=== PATIENT | female | born 1960 | race Caucasian/White ===

== ENCOUNTER → 2020-11-15 | Outpatient (CLI) | payer OTHER, MEDICAID | END | disposition home or self-care (01) | LOC: RAD 12:49 | PROVIDERS: ATTEND Nurse Practitioner Family | DX: J02.9 Acute pharyngitis, unspecified (principal); R06.2 Wheezing; R07.89 Other chest pain ==

== ENCOUNTER → 2021-02-01 | Outpatient (CLI) | payer OTHER, MEDICAID | END | disposition home or self-care (01) | LOC: RAD 13:47 | PROVIDERS: ATTEND Nurse Practitioner Family | DX: M19.071 Primary osteoarthritis, right ankle and foot (principal) ==

== ENCOUNTER → 2021-04-27 | Outpatient (CLI) | payer OTHER, MEDICAID ==
[~2021-04-27] MED LIST: ARNUITY ELLIPT50 MCG INH; CITALOPRAM40 MG PO; CLONAZEPAM1 MG PO; DECADRON6 M1 PO; MIRTAZAPINE15 M2 PO; NICODERM CQ1 EAC2 T; SINGULAIR10 M1 PO
== END | disposition home or self-care (01) ==
LOC: RAD 11:42
PROVIDERS: ATTEND Nurse Practitioner Family
DX: U07.1 COVID-19 (principal); J12.82 Pneumonia due to coronavirus disease 2019

== ENCOUNTER → 2021-06-09 | Outpatient (CLI) | payer OTHER, MEDICAID | END | disposition home or self-care (01) | LOC: RAD 14:14 | PROVIDERS: ATTEND Nurse Practitioner Family | DX: R93.89 Abnormal findings on diagnostic imaging of other specified body structures (principal); Z72.0 Tobacco use; J44.9 Chronic obstructive pulmonary disease, unspecified ==

== ENCOUNTER → 2021-06-28 | Outpatient (CLI) | payer OTHER, MEDICAID | END | disposition home or self-care (01) | LOC: RAD 14:13 | PROVIDERS: ATTEND Nurse Practitioner Family | DX: M19.041 Primary osteoarthritis, right hand (principal); M65.4 Radial styloid tenosynovitis [de Quervain]; Z86.16 Personal history of COVID-19 ==

== ENCOUNTER 2021-07-19 10:40 | Emergency (ER) | payer OTHER, MEDICAID ==
[~2021-07-19] VITALS: Ht 165.1 cm; Wt 113.4 kg
[2021-07-19 11:51] LABS: BASO % 0.4 % (0.0-1.0); HEMATOCRIT 47.5 % (37.0-47.0); LYMPH # 0.5 10*3/uL (1.3-4.4); MEAN CELL VOLUME 84.8 fl (81.0-99.0); MEAN CORPUSCULAR HGB 28.2 pg (27.0-31.0); MEAN CORPUSCULAR HGB CONC 33.3 g/dl (33.0-37.0); MEAN PLATELET VOLUME 9.8 fl (9.6-12.3); MONO # 0.4 10*3/uL (0.1-1.0); MONO % 4.2 % (3.0-9.0); NEUT # 7.4 10*3/uL (2.3-7.9); NEUT % 88.4 % (47.0-73.0); PLATELET COUNT AUTOMATED 225 10*3/uL (130-400); RED CELL DISTRI WIDTH 13.2 % (0-14.5); WHITE BLOOD COUNT 8.3 10*3/uL (4.8-10.8)
[2021-07-19 12:02] LABS: ACT PARTIAL THROMBO TIME 37.6 SECONDS (20.0-32.1)
[2021-07-19 12:08] LABS: CREATININE 1.12 mg/dL (0.55-1.02); POTASSIUM 3.4 mmol/L (3.5-5.1); TOTAL PROTEIN 7.8 gm/dL (6.4-8.2)
[2021-07-19] MEDS ORDERED: ZITHROMAX250 MG PO (15:22)
[2021-07-19] MEDS ORDERED: PREDNISONE50 MG PO (15:22)
== END 2021-07-19 15:26 | disposition home or self-care (01) ==
LOC: ED 10:40
PROVIDERS: Emergency Medicine
DX: J20.9 Acute bronchitis, unspecified (principal); Z20.822 Contact with and (suspected) exposure to COVID-19; Z79.899 Other long term (current) drug therapy; Z90.49 Acquired absence of other specified parts of digestive tract; F17.200 Nicotine dependence, unspecified, uncomplicated

== ENCOUNTER → 2021-08-16 | Day surgery (SDC) | payer OTHER, MEDICAID ==
[2021-08-12 12:17] LABS: CREATININE 1.15 mg/dL (0.55-1.02); POTASSIUM 3.7 mmol/L (3.5-5.1)
[~2021-08-16] VITALS: Ht 165.1 cm; Wt 102.1 kg
[~2021-08-16] MED LIST changes: +KLONOPIN1 M1 PO; +MELOXICAM15 MG PO; +PREDNISONE50 MG PO; +PROVENTIL HFA6.7 GM INH; +ZITHROMAX250 MG PO
== END | disposition home or self-care (01) ==
LOC: SDC 08-12 13:15
PROVIDERS: ATTEND Orthopaedic Surgery
DX: M65.312 Trigger thumb, left thumb (principal); J44.9 Chronic obstructive pulmonary disease, unspecified; F41.9 Anxiety disorder, unspecified; F32.9 Major depressive disorder, single episode, unspecified; F43.10 Post-traumatic stress disorder, unspecified; F17.210 Nicotine dependence, cigarettes, uncomplicated; Z53.8 Procedure and treatment not carried out for other reasons

== ENCOUNTER 2022-04-16 12:14 | Emergency (ER) | payer OTHER, MEDICAID ==
[~2022-04-16 12:14] MED LIST changes: +CITALOPRAM20 MG PO; +FLUTICASONE P15.8 ML NAS; +KLONOPIN0.5 MG PO; +VITAMIN B121000 MC1 PO
== END 2022-04-16 14:33 | disposition home or self-care (01) ==
LOC: ED 12:14
DX: M77.31 Calcaneal spur, right foot (principal); J45.909 Unspecified asthma, uncomplicated; F32.A Depression, unspecified; F41.9 Anxiety disorder, unspecified; Z90.49 Acquired absence of other specified parts of digestive tract; Z98.890 Other specified postprocedural states; F17.200 Nicotine dependence, unspecified, uncomplicated

== ENCOUNTER 2023-07-08 10:26 | Emergency (ER) | payer OTHER, MEDICAID ==
[~2023-07-08] VITALS: Ht 165.1 cm; Wt 98.9 kg
[2023-07-08] MEDS ORDERED: ACETAMINOPHEN 325 MG TAB PO ONE (13:15)
== END 2023-07-08 13:25 | disposition home or self-care (01) ==
LOC: ED 10:26
DX: M25.561 Pain in right knee (principal); J45.909 Unspecified asthma, uncomplicated; J44.9 Chronic obstructive pulmonary disease, unspecified; F32.A Depression, unspecified; F41.9 Anxiety disorder, unspecified; F17.200 Nicotine dependence, unspecified, uncomplicated; Z90.49 Acquired absence of other specified parts of digestive tract; Z98.890 Other specified postprocedural states

== ENCOUNTER → 2024-06-11 | Outpatient (CLI) | payer OTHER ==
[2024-06-11 07:55] LABS: BASO # 0.1 10*3/uL (0.0-0.1); BASO % 0.5 % (0.0-1.0); EOS # 0.1 10*3/uL (0.0-0.4); EOS % 1.3 % (1.0-4.0); HEMATOCRIT 45.7 % (37.0-47.0); MEAN CELL VOLUME 87.5 fl (81.0-99.0); MEAN CORPUSCULAR HGB 29.1 pg (27.0-31.0); MEAN CORPUSCULAR HGB CONC 33.3 g/dl (33.0-37.0); MEAN PLATELET VOLUME 9.7 fl (9.6-12.3); MONO # 0.6 10*3/uL (0.1-1.0); MONO % 6.6 % (3.0-9.0); NEUT # 5.9 10*3/uL (2.3-7.9); NEUT % 65.1 % (47.0-73.0); PLATELET COUNT AUTOMATED 331 10*3/uL (130-400); RED BLOOD COUNT 5.22 10*6/uL (4.10-5.10); RED CELL DISTRI WIDTH 13.1 % (0-14.5); WHITE BLOOD COUNT 9.1 10*3/uL (4.8-10.8)
[2024-06-11 09:23] LABS: ALKALINE PHOSPHATASE 97 U/L (46-116); BUN 11 mg/dl (9-23); CHLORIDE 107 mmol/L (98-107); POTASSIUM 3.4 mmol/L (3.4-5.1); SGPT/ALT 20 U/L (5-49); T3 UPTAKE 27.7 % (22.4-36.7); THYROXINE (T4) TOTAL 9.3 ug/dl (4.5-10.9); TOTAL PROTEIN 7.7 gm/dL (6.0-8.0)
== END | disposition home or self-care (01) ==
LOC: LAB 07:35
PROVIDERS: ATTEND Social Worker Clinical
DX: Z51.81 Encounter for therapeutic drug level monitoring (principal); Z79.899 Other long term (current) drug therapy

== ENCOUNTER → 2024-07-15 | Outpatient (CLI) | payer OTHER ==
[2024-07-15 12:03] LABS: BASO # 0.1 10*3/uL (0.0-0.1); BASO % 0.6 % (0.0-1.0); EOS # 0.1 10*3/uL (0.0-0.4); EOS % 0.5 % (1.0-4.0); HEMATOCRIT 46.5 % (37.0-47.0); MEAN CELL VOLUME 87.9 fl (81.0-99.0); MEAN CORPUSCULAR HGB 29.1 pg (27.0-31.0); MEAN CORPUSCULAR HGB CONC 33.1 g/dl (33.0-37.0); MONO # 0.8 10*3/uL (0.1-1.0); MONO % 5.8 % (3.0-9.0); NEUT # 9.3 10*3/uL (2.3-7.9); NEUT % 70.2 % (47.0-73.0); PLATELET COUNT AUTOMATED 353 10*3/uL (130-400); RED BLOOD COUNT 5.29 10*6/uL (4.10-5.10); RED CELL DISTRI WIDTH 13.2 % (0-14.5); WHITE BLOOD COUNT 13.3 10*3/uL (4.8-10.8)
[2024-07-15 12:05] LABS: BILIRUBIN Negative (Negative); BLOOD Trace-Lysed (Negative); CLARITY Clear (Clear); COLOR Yellow (Yellow); GLUCOSE Negative (Negative); KETONE Negative (Negative); LEUKO ESTERASE Negative (Negative); NITRITE Negative (Negative)
[2024-07-15 12:30] LABS: ALKALINE PHOSPHATASE 99 U/L (46-116); BUN 12 mg/dl (9-23); CHLORIDE 105 mmol/L (98-107); CPK 84 U/L (34-171); SGPT/ALT 21 U/L (5-49); TOTAL PROTEIN 7.5 gm/dL (6.0-8.0)
[2024-07-15 12:52] LABS: BACTERIA 1+; MUCOUS 2+
== END | disposition home or self-care (01) ==
LOC: LAB 11:44
PROVIDERS: ATTEND Nurse Practitioner Family
DX: J44.9 Chronic obstructive pulmonary disease, unspecified (principal); M79.10 Myalgia, unspecified site; R05.1 Acute cough; G25.81 Restless legs syndrome

== ENCOUNTER → 2024-07-18 | Outpatient (CLI) | payer OTHER | END | disposition home or self-care (01) | LOC: US 11:58 | PROVIDERS: ATTEND Nurse Practitioner Family | DX: I82.531 Chronic embolism and thrombosis of right popliteal vein (principal) ==

== ENCOUNTER 2024-08-11 16:20 | Emergency (ER) | payer OTHER ==
[~2024-08-11] VITALS: Ht 165.1 cm; Wt 98.9 kg
[2024-08-11] MEDS ORDERED: Acetaminophen/Oxycodone 5 MG/325 MG TABLET PO ONE (17:20)
[2024-08-11] MEDS ORDERED: NAPROSYN500 MG PO (19:09)
== END 2024-08-11 19:13 | disposition home or self-care (01) ==
LOC: ED 16:20
DX: S93.401A Sprain of unspecified ligament of right ankle, initial encounter (principal); J44.9 Chronic obstructive pulmonary disease, unspecified; F32.A Depression, unspecified; F41.9 Anxiety disorder, unspecified; Z98.890 Other specified postprocedural states; Z88.1 Allergy status to other antibiotic agents; Z79.899 Other long term (current) drug therapy; Z87.891 Personal history of nicotine dependence; Z90.49 Acquired absence of other specified parts of digestive tract; W18.39XA Other fall on same level, initial encounter; Y93.89 Activity, other specified; Y92.89 Other specified places as the place of occurrence of the external cause; Y99.8 Other external cause status

== ENCOUNTER → 2024-08-18 | Outpatient (CLI) | payer OTHER ==
[~2024-08-18] MED LIST changes: +NAPROSYN500 MG PO
== END | disposition home or self-care (01) ==
LOC: ORTHO 03:03
PROVIDERS: ATTEND Orthopaedic Surgery
DX: M19.071 Primary osteoarthritis, right ankle and foot (principal); M77.31 Calcaneal spur, right foot; M25.571 Pain in right ankle and joints of right foot